=== PATIENT | male | born 1965 | race Caucasian/White ===

== ENCOUNTER → 2016-07-31 | Outpatient (REF) | payer OTHER | END | disposition home or self-care (01) | LOC: M LAB REF 09:07 | PROVIDERS: ATTEND Physician Assistant | DX: J02.9 Acute pharyngitis, unspecified (principal) ==

== ENCOUNTER 2018-09-01 09:08 | Day surgery (SDC) | payer OTHER ==
[~2018-09-01] VITALS: Ht 188 cm; Wt 91.2 kg
[~2018-09-01 09:08] MED LIST: MULT1TAB10 PO; NS 1,000 ML IV ONE; SING10TA32 PO; allergy shot
[2018-09-01] MEDS ORDERED: LIDOCAINE 2% INJ 100 MG/5 ML SDV (FOR ANES.) As Ordered ONE (10:02)
[2018-09-01] MEDS ORDERED: MIDAZOLAM INJ 2 MG/2 ML VIAL (J2250) As Ordered ONE (10:02)
[2018-09-01] MEDS ORDERED: PROPOFOL 500 MG/50 ML VIAL As Ordered ONE (10:02)
--- NOTE | 2018-09-01 10:35 | ROOR ---
Patient Name: Dedrick Davis Procedure Date: 09/01/2018 9:59 AM Date of : 1965 Age: 53 Room: [facility] Gender: Male Note Status: Finalized Procedure: Colonoscopy Indications: Screening for colorectal malignant neoplasm, This is the patient's first colonoscopy Providers: Yusuf Sousa MD Referring MD: Guevara Singh MD Requesting Provider: Medicines: Monitored Anesthesia Care Complications: No immediate complications. Procedure: Pre-Anesthesia Assessment: - Prior to the procedure, a History and Physical was performed, and patient medications and allergies were reviewed. The patient is competent. The risks and benefits of the procedure and the sedation options and risks were discussed with the patient. All questions were answered and informed consent was obtained. Patient identification and proposed procedure were verified by the physician, the nurse and the anesthesiologist in the procedure room. Mental Status Examination: alert and oriented. Airway Examination: normal oropharyngeal airway and neck mobility. CV Examination: regular rate and rhythm. Prophylactic Antibiotics: The patient does not require prophylactic antibiotics. Prior Anticoagulants: The patient has taken no previous anticoagulant or antiplatelet agents. ASA Grade Assessment: II - A patient with mild systemic disease. After reviewing the risks and benefits, the patient was deemed in satisfactory condition to undergo the procedure. The anesthesia plan was to use monitored anesthesia care (MAC). Immediately prior to administration of medications, the patient was re-assessed for adequacy to receive sedatives. The heart rate, respiratory rate, oxygen saturations, blood pressure, adequacy of pulmonary ventilation, and response to care were monitored throughout the procedure. The physical status of the patient was re-assessed after the procedure. The Colonoscope was introduced through the anus and advanced to the terminal ileum. The colonoscopy was performed without difficulty. The patient tolerated the procedure well. The quality of the bowel preparation was excellent. Findings: The perianal and digital rectal examinations were normal. The terminal ileum appeared normal. The colon (entire examined portion) appeared normal. Impression: - The examined portion of the ileum was normal. - The entire examined colon is normal. - No specimens collected. Recommendation: - Discharge patient to home. - Resume previous diet. - Continue present medications. - Repeat colonoscopy in 10 years for screening purposes. Yusuf Sousa MD Yusuf Sousa MD 09/01/2018 10:34:23 AM This report has been signed electronically. Number of Addenda: 0 Note Initiated On: 09/01/2018 9:59 AM Estimated Blood Loss: Estimated blood loss: none.
[2018-09-01 11:06] VITALS: BP 132/82
== END 2018-09-01 11:05 | disposition home or self-care (01) ==
LOC: M OPP 09:08
PROVIDERS: ATTEND Surgery
DX: Z12.11 Encounter for screening for malignant neoplasm of colon (principal); Z88.0 Allergy status to penicillin; Z88.1 Allergy status to other antibiotic agents
CPT/HCPCS: 45378; J2250

== ENCOUNTER 2019-06-06 09:41 | Emergency (ER) | payer OTHER ==
[~2019-06-06] VITALS: Ht 188 cm; Wt 91.9 kg
[~2019-06-06 09:41] MED LIST changes: -NS 1,000 ML IV ONE
[2019-06-06] MEDS ORDERED: XOLA150I (09:48)
--- NOTE | 2019-06-06 10:33 | REP ---
Clinical: Chest pain . Comparison: None . Technique: PA and lateral. Findings: The mediastinum and cardiac silhouette are normal. The lung donovan are clear and without acute consolidation, effusion, or pneumothorax. The skeletal structures are intact and normal. Impression: 1. No acute cardiopulmonary process. Electronically Signed by Shaq Coffey MD 06/06/2019 10:24 A
[2019-06-06 10:48] LABS: INFLUENZA A AMPLIFICATION NEGATIVE (NEGATIVE); INFLUENZA B AMPLIFICATION NEGATIVE (NEGATIVE)
[2019-06-06 11:09] LABS: BASO # 0.1 10^3/uL (0.0-0.2); BASO % 0.9 % (0.0-1.0); EOS # 0.4 10^3/uL (0.0-0.5); EOS % 7.5 % (0.0-3.0); HEMATOCRIT 47.8 % (42.0-52.0); HEMOGLOBIN 15.5 g/dl (13.5-17.5); LYMPH # 1.4 10^3/uL (1.5-5.0); LYMPH % 24.7 % (24.0-44.0); MEAN CORPUSCULAR HEMOGLOBIN 30.5 pg (27.0-33.0); MEAN CORPUSCULAR HGB CONC 32.4 g/dl (32.0-36.5); MEAN CORPUSCULAR VOLUME 94.1 fl (80.0-96.0); MONO # 0.6 10^3/uL (0.0-0.8); MONO % 11.5 % (0.0-5.0); NEUTROPHILS % 54.7 % (36.0-66.0); PLATELET COUNT, AUTOMATED 216 10^3/uL (150-450); RED BLOOD COUNT 5.08 10^6/uL (4.30-6.10); WHITE BLOOD COUNT 5.5 10^3/uL (4.0-10.0)
[2019-06-06 11:38] LABS: BLOOD UREA NITROGEN 16 MG/DL (7-18); C REACTIVE PROTEIN QUANTITATIV 0.76 MG/DL (0.00-0.30); CALCIUM LEVEL 8.6 MG/DL (8.5-10.1); CARBON DIOXIDE LEVEL 32 MEQ/L (21-32); CHLORIDE LEVEL 105 MEQ/L (98-107); CK-MB VALUE MASS < 1.0 NG/ML (<3.6); CPK CREATINE PHOSPHOKINASE 66 U/L (39-308); CREATININE FOR GFR 1.08 MG/DL (0.70-1.30); GLOMERULAR FILTRATION RATE > 60.0 (>56); GLUCOSE, FASTING 95 MG/DL (70-100); MB/CK RELATIVE INDEX 1.52 (< OR =4); POTASSIUM SERUM 4.7 MEQ/L (3.5-5.1); RHEUMATOID FACTOR QUANT < 10.0 IU/ML (<15.0); SODIUM LEVEL 140 MEQ/L (136-145); THYROID STIMULATING HORMONE 0.798 uIU/ML (0.358-3.740); TROPONIN I < 0.02 NG/ML (< 0.10)
[2019-06-06 11:43] LABS: ERYTHROCYTE SEDIMENTATION RATE 20 mm/hr (0-20)
[2019-06-06 12:20] LABS: MONO REFLEX EBV COMP NEGATIVE (NEGATIVE)
[2019-06-06] MEDS ORDERED: methylPREDNISolone INJ 125 MG/2 ML VIAL (J2930) IM ONE (13:00)
[2019-06-06] MEDS ORDERED: PRED20TA PO (13:37)
[2019-06-06 13:53] VITALS: BP 121/73
--- NOTE | 2019-06-07 07:23 | ECGEPIP ---
[facility] - ED Test Date: 2019-06-06 Pat Name: RUCHI MOSELEY Department: Room: - Gender: Male [employer]: : 1965 Requested By: BINA Fonseca PA-C Order Number: [id number] Reading MD: Naomie Harris Measurements Intervals [place] Rate: 72 P: 50 HI: 150 QRS: 42 QRSD: 89 T: 49 QT: 375 QTc: 413 Interpretive Statements SINUS RHYTHM NSTTW abnormalities No prior Electronically Signed on 06-07-2019 7:23:11 EST by Naomie Harris
[2019-06-07 09:12] LABS: TOTAL 25(OH) VITAMIN D 40.2 NG/ML (30.0-100.0); VITAMIN B12 LEVEL 444 PG/ML (247-911)
[2019-06-09 00:06] LABS: ANTI DOUBLE STRAND-DNA AB <1 IU/mL (0-9); ANTINUCLEAR ANTIBODIES DIRECT Positive (Negative); EBV AB TO NUCLEAR ANTIGEN <18.0 U/mL (0.0-17.9); EBV VIRAL CAPSID AG IgG >600.0 U/mL (0.0-17.9); EBV VIRAL CAPSID AG IgM <36.0 U/mL (0.0-35.9); Lyme Disease IgG Ab 18 kDa Ban Absent (.); Lyme Disease IgG Ab 23 kDa Ban Absent (.); Lyme Disease IgG Ab 28 kDa Ban Absent (.); Lyme Disease IgG Ab 30 kDa Ban Absent (.); Lyme Disease IgG Ab 39 kDa Ban Absent (.); Lyme Disease IgG Ab 41 kDa Ban Absent (.); Lyme Disease IgG Ab 45 kDa Ban Absent (.); Lyme Disease IgG Ab 58 kDa Ban Absent (.); Lyme Disease IgG Ab 66 kDa Ban Absent (.); Lyme Disease IgG Ab 93 kDa Ban Absent (.); Lyme Disease IgG West Blot Int Negative (.); Lyme Disease IgG/IgM Antibodie <0.91 ISR (0.00-0.90); Lyme Disease IgM Ab 23 kDa Ban Present (.); Lyme Disease IgM Ab 39 kDa Ban Absent (.); Lyme Disease IgM Ab 41 kDa Ban Absent (.); Lyme Disease IgM Ab Quantitati 1.59 index (0.00-0.79); Lyme Disease IgM West Blot Int Negative (.); RNP ANTIBODIES 1.2 AI (0.0-0.9); SJOGREN'S ANTI SS-A <0.2 AI (0.0-0.9); SJOGREN'S ANTI SS-B <0.2 AI (0.0-0.9); SMITH ANTIBODIES <0.2 AI (0.0-0.9)
[2019-06-10 10:19] LABS: ANTI-HISTONE ANTIBODIES 0.5 Units (0.0-0.9); ANTI-MITOCHONDRIAL ANTIBODY <20.0 Units (0.0-20.0); ANTI-SMOOTH MUSCLE ANTIBODY 5 Units (0-19); CYCLIC CITRULLINATED PEPTIDE 7 units (0-19); HLA-B27 Negative (.); TISSUE TRANSGLUTAMINASE IgA <2 U/mL (0-3); TISSUE TRANSGLUTAMINASE IgG <2 U/mL (0-5); UNITSIGA FOR GLIADIN IGA 14 units (0-19); UNITSIGG FOR GLIADIN IGG 4 units (0-19)
== END 2019-06-06 14:09 | disposition home or self-care (01) ==
LOC: M ED 09:41
DX: M79.10 Myalgia, unspecified site (principal); R53.81 Other malaise; Z96.653 Presence of artificial knee joint, bilateral; Z79.899 Other long term (current) drug therapy; Z88.2 Allergy status to sulfonamides; Z88.1 Allergy status to other antibiotic agents
CPT/HCPCS: 36415; 71046; 80048; 81374; 82306; 82550; 82553; 82607; 83516; 83520; 84443; 84484; 85025; 85652; 86038; 86140; 86200; 86255; 86308; 86431; 86617; 86663; 86664; 86665; 87486; 87581; 87631; 87633; 87798; 93005; 96372; 99284; J2930

== ENCOUNTER → 2022-06-11 | Outpatient (REF) | payer OTHER ==
[~2022-06-11] MED LIST changes: +PRED20TA PO; +XOLA150I
== END ==
LOC: M SFHCDERM 16:26
PROVIDERS: ATTEND Dermatology
DX: Z48.02 Encounter for removal of sutures (principal)

== ENCOUNTER → 2022-11-05 | Outpatient (CLI) | payer OTHER ==
[~2022-11-05] MED LIST changes: +MONT-5 PO; -SING10TA32 PO
== END ==
LOC: M WUC 09:49
PROVIDERS: ATTEND Physician Assistant
DX: S63.681A Other sprain of right thumb, initial encounter (principal); W18.30XA Fall on same level, unspecified, initial encounter; Y92.009 Unspecified place in unspecified non-institutional (private) residence as the place of occurrence of the external cause

== ENCOUNTER → 2022-11-18 | Outpatient (CLI) | payer OTHER | LOC: M PLAIMG 12:20 | PROVIDERS: ATTEND Student in an Organized Health Care Education/Training Program | DX: M25.541 Pain in joints of right hand (principal) ==

== ENCOUNTER → 2023-12-07 | Outpatient (CLI) | payer OTHER | LOC: M RAD 10:35 | PROVIDERS: ATTEND Registered Nurse | DX: S60.352A Superficial foreign body of left thumb, initial encounter (principal); W18.30XA Fall on same level, unspecified, initial encounter; Y92.009 Unspecified place in unspecified non-institutional (private) residence as the place of occurrence of the external cause ==

== ENCOUNTER 2024-08-01 14:25 | Inpatient (IN) | payer OTHER ==
[~2024-08-01] VITALS: Ht 188 cm; Wt 91.5 kg
[~2024-08-01 14:25] MED LIST changes: -XOLA150I; +XOLA150I SQ
[2024-08-01] MEDS: BOOSTRIX VACCINE (TETANUS/DIPHTH/ACEL. PERTUSSIS) 0.5ML SYR IM ONE (15:03)
[2024-08-01] MEDS: BACITRACIN OINTMENT 30GM TUBE TOP PRN (16:52)
[2024-08-01] MEDS: ceFAZolin SOD 2 GM in IV 1 EA IV ONE (16:52)
[2024-08-01 17:00] LABS: BASO % 0.6 % (0.0-1.0); EOS # 0.1 10^3/uL (0.0-0.5); HEMATOCRIT 47.7 % (42.0-52.0); HEMOGLOBIN 16.1 g/dl (13.5-17.5); LYMPH # 1.7 10^3/uL (1.5-5.0); LYMPH % 26.4 % (24.0-44.0); MEAN CORPUSCULAR HEMOGLOBIN 31.2 pg (27.0-33.0); MEAN CORPUSCULAR HGB CONC 33.8 g/dl (32.0-36.5); MEAN CORPUSCULAR VOLUME 92.4 fl (80.0-96.0); MONO # 0.5 10^3/uL (0.0-0.8); NEUTROPHILS # 4.2 10^3/uL (1.5-8.5); NEUTROPHILS % 63.7 % (36.0-66.0); PLATELET COUNT, AUTOMATED 183 10^3/uL (150-450); RED BLOOD COUNT 5.16 10^6/uL (4.30-6.10); WHITE BLOOD COUNT 6.6 10^3/uL (4.0-10.0)
[2024-08-01] MEDS ORDERED: THERTAB52 PO (17:07)
[2024-08-01] MEDS ORDERED: HOME MED LIST COMPLETE! XX SCH (17:10)
[2024-08-01 17:13] LABS: INR 0.92; PARTIAL THROMBOPLASTIN TIME 28.1 SECONDS (24.8-34.2); PROTHROMBIN TIME 12.7 SECONDS (12.5-14.5)
[2024-08-01 17:26] LABS: ALBUMIN 4.2 G/DL (3.2-5.2); ALKALINE PHOSPHATASE 80 U/L (40-129); ALT/SGPT 30 U/L (7.0-40); AST/SGOT 29 U/L (<34); BILIRUBIN,TOTAL 0.6 MG/DL (0.3-1.2); BLOOD UREA NITROGEN 17 MG/DL (9-23); CARBON DIOXIDE LEVEL 28 MMOL/L (20-31); CHLORIDE LEVEL 108 MMOL/L (98-107); CREATININE FOR GFR 0.87 MG/DL (0.70-1.30); GLOMERULAR FILTRATION RATE > 60.0 (>56); GLUCOSE, FASTING 105 MG/DL (60-100); POTASSIUM SERUM 4.3 MMOL/L (3.5-5.1); SODIUM LEVEL 142 MMOL/L (136-145); TOTAL PROTEIN 7.4 G/DL (5.7-8.2)
[2024-08-01] MEDS ORDERED: ACETAMINOPHEN 325 MG TAB PO PRN (17:40)
[2024-08-01 20:11] VITALS: BP 143/76; TEMP 97.9; O2SAT 98
[2024-08-01] MEDS: traMADol 50 MG TAB PO PRN (20:25)
[2024-08-02 04:00] VITALS: BP 136/76; TEMP 97.7; O2SAT 97
[2024-08-02] MEDS ORDERED: HOME MED LIST COMPLETE! XX SCH (05:40)
[2024-08-02] MEDS: ceFAZolin SOD 2 GM in IV 1 EA IV SCH (11:43)
[2024-08-02 11:45] VITALS: BP 104/72; O2SAT 98
[2024-08-02] MEDS ORDERED: propofoL 200 MG/20 ML VIAL As Ordered ONE (12:53)
[2024-08-02] MEDS ORDERED: dexmedeTOMIDine (4MCG/ML)200MCG/50ML BTL (PRECEDEX) As Ordered ONE (12:53)
[2024-08-02] MEDS ORDERED: LIDOCAINE 2% 100MG/5ML SDV (FOR ANES.) As Ordered ONE (12:53)
[2024-08-02] MEDS ORDERED: ONDANSETRON 4MG 2ML VIAL As Ordered ONE (12:53)
[2024-08-02] MEDS ORDERED: MIDAZOLAM INJ 2MG/2ML VIAL As Ordered ONE (12:53)
[2024-08-02] MEDS ORDERED: KETOROLAC 60MG 2ML VIAL As Ordered ONE (12:53)
[2024-08-02] MEDS ORDERED: fentaNYL 250 MCG/5 ML INJECTION As Ordered ONE (12:53)
[2024-08-02] MEDS ORDERED: ROCURONIUM BROMIDE 50MG/5ML VIAL As Ordered ONE (13:59)
[2024-08-02] MEDS: VANCOMYCIN 1000MG/20ML VIAL As Ordered ONE (14:22)
[2024-08-02] MEDS ORDERED: ACETAMINOPHEN 1000MG/100ML IV BAG As Ordered ONE (14:53)
[2024-08-02] MEDS ORDERED: SUGAMMADEX SODIUM 500 MG/5 ML VIAL (BRIDION) As Ordered ONE (14:53)
[2024-08-02] MEDS ORDERED: HYDROmorphone HCL 2MG/ML 1ML VIAL As Ordered ONE (15:26)
[2024-08-02] MEDS: BACITRACIN OINTMENT 30GM TUBE As Ordered ONE (15:27)
[2024-08-02] MEDS ORDERED: oxyCODONE 5MG TAB PO PRN (15:40)
[2024-08-02] MEDS ORDERED: HYDROMORPHONE HCL 0.5 MG/ 0.5 ML SYRINGE IV PRN (15:40)
[2024-08-02] MEDS ORDERED: ONDANSETRON 4MG 2ML VIAL IV PRN (15:40)
[2024-08-02] MEDS ORDERED: fentaNYL 100 MCG/2 ML INJECTION IV PRN (15:40)
[2024-08-02] MEDS ORDERED: DOXY-441 PO (15:55)
[2024-08-02] MEDS ORDERED: PERC5TAB12 PO (15:55)
[2024-08-02 17:00] VITALS: BP 126/73; TEMP 97.7; O2SAT 96
[2024-08-02 17:30] VITALS: BP 122/73; TEMP 97.3; O2SAT 94
[2024-08-02 18:30] VITALS: BP 118/70; TEMP 97.7; O2SAT 96
== END 2024-08-02 19:34 | disposition home or self-care (01) | DRG 514 ==
LOC: M ED 14:25 → EEVIPCON 17:36 → M ED INP 17:36 → M MS5PR 20:11
PROVIDERS: ADMIT Internal Medicine; ATTEND Internal Medicine
PROC: 0X6Q0Z2 Detachment at Right Middle Finger, Mid, Open Approach (ICD-10-PCS; 2024-08-02)
PROC: 0PST04Z Reposition Right Finger Phalanx with Internal Fixation Device, Open Approach (ICD-10-PCS; principal; 2024-08-02 13:30)
DX: S62.634B Displaced fracture of distal phalanx of right ring finger, initial encounter for open fracture (principal); S62.632B Displaced fracture of distal phalanx of right middle finger, initial encounter for open fracture; W30.81XA Contact with agricultural transport vehicle in stationary use, initial encounter; Y93.H9 Activity, other involving exterior property and land maintenance, building and construction; Y99.8 Other external cause status; Y92.89 Other specified places as the place of occurrence of the external cause; Z79.899 Other long term (current) drug therapy; Z88.1 Allergy status to other antibiotic agents; Z88.2 Allergy status to sulfonamides; S61.212A Laceration without foreign body of right middle finger without damage to nail, initial encounter; S61.214A Laceration without foreign body of right ring finger without damage to nail, initial encounter

== ENCOUNTER → 2024-08-11 | Outpatient (CLI) | payer OTHER ==
[~2024-08-11] MED LIST changes: +DOXY-441 PO; +PERC5TAB12 PO; +THERTAB52 PO
== END ==
LOC: M SOG 08:12
PROVIDERS: ATTEND Physician Assistant
DX: M79.644 Pain in right finger(s) (principal); M25.641 Stiffness of right hand, not elsewhere classified; Z89.021 Acquired absence of right finger(s); Z87.81 Personal history of (healed) traumatic fracture

== ENCOUNTER → 2024-09-14 | Outpatient (CLI) | payer OTHER | LOC: M SOG 07:48 | PROVIDERS: ATTEND Physician Assistant | DX: M79.644 Pain in right finger(s) (principal); M25.641 Stiffness of right hand, not elsewhere classified ==

== ENCOUNTER → 2024-10-06 | Outpatient (CLI) | payer OTHER | LOC: M SOG 08:01 | PROVIDERS: ATTEND Physician Assistant | DX: M79.644 Pain in right finger(s) (principal); M25.641 Stiffness of right hand, not elsewhere classified ==